=== PATIENT | female | born 1995 | race Caucasian/White ===

== ENCOUNTER 2023-10-15 16:00 | Outpatient (CLI) | payer OTHER, SELFPAY | END 2023-10-15 16:01 | disposition home or self-care (01) | PROVIDERS: PCP Family Medicine; Visit Provider Family Medicine | DX: E28.2 Polycystic ovarian syndrome (principal); E66.9 Obesity, unspecified; Z68.37 Body mass index [BMI] 37.0-37.9, adult; K59.00 Constipation, unspecified | CPT/HCPCS: 80053; 80061; 84443 ==

== ENCOUNTER 2023-11-26 15:12 | Outpatient (CLI) | payer OTHER, SELFPAY ==
--- NOTE | 2023-11-26 15:30 | MR_ITS ---
Patient: ANGE DAVID Facility:?[facility] Patient ID:?[id number] Site Patient ID:?[id number]. Site :?[id number] Study:?MRI-Spine Lumbar W/O-11/26/2023 4:17:10 PM Ordering Physician:?RAMILA BRANDON Final Report: Indication: Low back pain Technique: Multiplanar, multisequence, MRI of the lumbar spine, obtained without contrast. Comparison: Lumbar spine x-ray 09/17/2023 Findings: For numbering purposes, there are 5 [id number] lumbar vertebrae, followed by a transitional, right rubina lumbarized S1 segment, and a rudimentary STIR hyperintense S1-S2 intervertebral disc. The normal lumbar lordosis is preserved, with slight levoconvex curvature. No significant spondylolisthesis. Vertebral body heights are maintained. No acute osseous abnormality. Unremarkable bone marrow signal. Conus medullaris terminates at L2. No suspicious findings identified in the paraspinal soft tissues. T12-L1 through L4-L5: No significant neural foramen or spinal canal stenosis. L5-S1: Broad-based central disc protrusion. No obvious contact on the descending S1 nerve roots. No neural foraminal or spinal canal stenosis. S1-S2: Partially lumbarized S1 segment. Rudimentary disc. No neural foraminal or spinal canal stenosis. Impression: 1. For numbering purposes, there is a transitional, partially lumbarized S1 segment, followed by a rudimentary STIR hyperintense S1-S2 intervertebral disc. 2. At L5-S1, broad-based central disc protrusion, without contact on the descending S1 nerve roots. 3. Slight lumbar levoconvex curvature. No acute osseous abnormality. No neural foraminal or spinal canal stenosis. Dictated by Cristiane Ingram MD @ 11/26/2023 4:43:47 PM Signed by:?Cristiane Ingram MD @11/26/2023 4:43:47 PM (Electronic Signature)
== END 2023-11-26 15:13 | disposition home or self-care (01) ==
LOC: MRI 15:12
PROVIDERS: PCP Family Medicine; Visit Provider Family Medicine
DX: M54.50 Low back pain, unspecified (principal); M51.27 Other intervertebral disc displacement, lumbosacral region; M79.604 Pain in right leg; M79.605 Pain in left leg
CPT/HCPCS: 72148

== ENCOUNTER 2023-12-15 11:04 | Emergency (ER) | payer OTHER, SELFPAY ==
[2023-12-15 11:12] VITALS: BP 140/120; PULSE 94; RESP 24; TEMP 36.5; O2SAT 98; BMI 38.3
--- NOTE | 2023-12-15 11:15 | ED.GENADULT ---
HPI - General Adult General Chief complaint: Back Injury/Pain Stated complaint: Back pain Time Seen by Provider: 12/15/23 11:08 History of Present Illness HPI narrative: Patient is a 28 year white female who has been working with Dr. Herrmann and bowen regarding low back pain. She had an MRI that showed a broad-based L5-S1 disc herniation but no nerve root impingement. She comes in as she was having intermittent back pain, she is scheduled for an injection, she was getting off the floor and her pain got worse it goes down the right leg. She has not had any bowel or bladder symptoms she has been on Vicodin that was not helping much. She has had no fever chills. She has had no perineal numbness. She is quite uncomfortable with her back and she is crying. Related Data Home Medications Medication Instructions Recorded Confirmed drospirenone 3 mg-ethinyl 1 tab PO DAILY 09/17/23 12/15/23 estradiol 0.02 mg tablet Previous Rx's Medication Instructions Recorded hydrocodone 5 mg-acetaminophen 325 1 tab PO Q6H PRN pain #14 tabs 12/09/23 mg tablet hydrocodone 5 mg-acetaminophen 325 2 tab PO Q8H PRN pain #20 tabs 12/15/23 mg tablet Allergies Allergy/AdvReac Type Severity Reaction Status Date / Time No Known Drug Allergies Allergy Verified 12/15/23 11:12 Review of Systems Status of ROS: Reports: 6 or more systems reviewed and unremarkable except as noted in History and below [facility] Medical History History of asthma ?Z87.09 - Personal history of other diseases of the respiratory system (ICD-10) Obesity (BMI 30-39.9) ?E66.9 - Obesity, unspecified (ICD-10) PCOS (polycystic ovarian syndrome) ?E28.2 - Polycystic ovarian syndrome (ICD-10) Irregular bowel habits ?R19.8 - Other specified symptoms and signs involving the digestive system and abdomen (ICD-10) Surgical History History of elbow surgery (07/2021) ?Z98.890 - Other specified postprocedural states (ICD-10) Family History Father History of coronary artery stent placement, Onset Age: 48 Paternal Grandfather Myocardial infarction, Onset Age: 65 Maternal Grandmother Stroke, Onset Age: 60 Breast cancer, Onset Age: 53 Diabetes Mother Melanoma Alcohol dependence Anxiety with depression Social History Narrative: Lives with significant other, 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[employer], 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, no kids Lifetime nonsmoker No alcohol use Recently started exercising 4 days a week 45 minutes full body workouts What is your current living situation?: I presently have a place to live Problems where you live: no known problems In the past 12 months, utilities in danger of being shut off: no In past 12 months, lack of transportation kept you from medical appts, meetings, work, or getting things needed for daily living: no In the past 12 mos, have been you worried that your food would run out before you had money to buy more?: never true In the past 12 mos, the food you bought just didn't last and you didn't have money to buy more?: never true Smoking Status: Never smoker How often do you have a drink containing alcohol: never AUDIT-C Alcohol total score: 0 Non-prescribed substance use: denies use How often does anyone, including family, friends and others, physically hurt you: never How often does anyone, including family, friends and others, insult or talk down to you: never How often does anyone, including family, friends and others, threaten you with harm: never How often does anyone, including family, friends and others, scream or curse at you: never Little interest or pleasure in doing things: not at all Feeling down, depressed, or hopeless: not at all Exam Narrative: Exam Narrative: Objective: Patient is tearful in moderate distress and discomfort She describes pain across her belt line in her lumbar some spine. She is sitting upright. She has been able ambulate. She has denies bowel or bladder symptoms as mention, reports she has pain in her right leg down to her lateral foot. She has and positive straight leg raise on the right She has normal strength sensation lower extremities on the bilaterally. She has palpable low back pain paravertebral muscle spasm. Const: Vital Signs, click to edit/add: Vital Signs - 24 hr 12/15/23 11:12 Temperature 97.7 F Pulse Rate [Pulse Oximeter] 94 Respiratory Rate 24 Blood Pressure [Ri ght Upper Arm] 140/120 H Pulse Oximetry 98 Oxygen Delivery Me thod Room Air Course Vital Signs Vital signs: Initial Vital Signs Temperature 97.7 F 12/15/23 11:12 Temperature Source Temporal Artery Scan 12/15/23 11:12 Pulse Rate 94 12/15/23 11:12 Respiratory Rate 24 12/15/23 11:12 Blood Pressure 140/120 H 12/15/23 11:12 Blood Pressure Mean 126 H 12/15/23 11:12 Blood Pressure Position Sitting 12/15/23 11:12 Pulse Oximetry 98 12/15/23 11:12 Oxygen Delivery Method Room Air 12/15/23 11:12 Vital Signs Temperature 97.7 F 12/15/23 11:12 Pulse Rate 94 12/15/23 11:12 Respiratory Rate 24 12/15/23 11:12 Blood Pressure 140/120 H 12/15/23 11:12 Pulse Oximetry 98 12/15/23 11:12 Oxygen Delivery Method Room Air 12/15/23 11:12 Temperature 97.7 F 12/15/23 11:12 Pulse Rate 94 12/15/23 11:12 Respiratory Rate 24 12/15/23 11:12 Blood Pressure 140/120 H 12/15/23 11:12 Pulse Oximetry 98 12/15/23 11:12 Oxygen Delivery Method Room Air 12/15/23 11:12 Medications Administered Medications: Discontinued Medications Generic Name Dose Route Start Last Admin Trade Name Norbertoq PRN Reason Stop Dose Admin Morphine Sulfate 10 mg 12/15/23 11:13 12/15/23 11:23 Morphine 10 Mg/Ml Inj IM 12/15/23 11:14 10 mg ONCE ONE Administration Medical Decision Making MDM Narrative Medical decision making narrative: 28-year-old female with low back pain. Her central disc herniation really does not look like it impinges nerve roots or central cord, but she is scheduled for an injection. She has been on prednisone, been on Vicodin. She had an exacerbation of what sounds like muscle spasm in her back. Will give her an IM injection of morphine 10 mg 60 mg IM Toradol. Will have her ice her back rest light activity can resume the Vicodin later today. And follow-up as planned for her injection. Return if problems or concerns. Addendum 12:01 p.m.: The patient sees be getting good relief from her injections. Jaw lower to go home ice, light activity position of comfort. Recommend resume the [place] this afternoon as needed. Follow up as scheduled. Return to ED as needed. Discharge Plan Discharge Clinical Impression: Low back pain Patient Disposition: Home w/ Parent or Adult Condition: Stable Additional Instructions: Light activity, ice to the back 10 minutes 5 times a day if he can, continue Vicodin as needed he can start that this afternoon. Light activity as mention, follow-up with your follow-up appointment is scheduled. Activity Level: Light activity Discharge Diet: Regular Prescriptions: New hydrocodone-acetaminophen 5-325 mg tablet 2 tab PO Q8H PRN (Reason: pain) Qty: 20 0RF No Action hydrocodone-acetaminophen 5-325 mg tablet 1 tab PO Q6H PRN (Reason: pain) Qty: 14 0RF drospirenone-ethinyl estradiol 3-0.02 mg tablet 1 tab PO DAILY Follow Up/Referrals: Dora Aguilar MD [Primary Care Provider] - Stand Alone Forms: [employer] Info Instructions
[2023-12-15] MEDS: MORPHINE 10 MG/ML inj IM (11:23)
--- OUTSIDE RECORDS SUMMARY | 2023-12-15 11:46 | XMS_ITS | Clinical Summary ---
Author [facility] Unknown [facility] Address [address] [place] [address] Care Team Providers Care Real Estate Recruiter Name Role Phone Peña Nunn MD Primary Care Provider [phone] Source Comments You are receiving this document as you are listed as the primary care provider,follow-up provider, or the patient has been referred to you for consultation.This is in compliance with the Medicare and[facility] Hospital[facility] EHR Incentive Program,which states Providers who transition their patient to another setting of careor provider of care or refers their patient to another provider of care shouldprovide summary care record for each transition of care or referral. [facility] Allergies Active Allergy Reactions Criticality Noted Date Comments Shellfish-Derived Products Itching,Other, see comments 12/20/2016 Medications Medication Sig Dispensed Refills Start Date End Date Status ibuprofen (MOTRIN) 800 MG tablet Take 1 Tablet by mouth every 8 hours as needed for Pain. 30 Tablet 07/07/2021 Active ketorolac (TORADOL) 10 MG tabletIndications:Bi lateral low back pain with bilateral sciatica, unspecified chronicity (HRC) Take 1 Tablet (10 mg) by mouth every 6 hours as needed for Pain. 12 Tablet 03/16/2022 Active Psyllium 0.52 g capsule Take 1 Capsule (0.52 g) by mouth two times a day. Take 1 capsule in the morning and one capsule in the afternoon. 180 Capsule 1 02/14/2023 Active dicyclomine (BENTYL) 10 MG capsule Take 1 Capsule (10 mg) by mouth three times a day as needed. 90 Capsule 2 02/21/2023 Active drospirenone-ethinyl estradiol (MICHAELA) 3-0.02 MG tabletIndications:Us es contraception Take 1 Tablet by mouth daily. 84 Tablet 3 08/16/2023 08/15/2024 Active Active Problems Problem Noted Date Diagnosed Date Chronic bilateral low back pain with bilateral s ciatica 04/12/2022 Closed fracture of left elbow 07/05/2021 Atypical squamous cells of u ndetermined significance on cytologic smear of cervix (ASC-US) 01/04/2021 Overview: CCSM Review: History: 12/2020 ASCUS (age 25) 05/2022 NILM 08/2023 NILM Plan, per ASCCP guidelines: PAP IN 3 YEARS 2026 Current moderate episode of major depressive disorder without prior episode 07/27/2020 Anxiety 07/27/2020 Resolved Problems Problem Noted Date Diagnosed Date Resolved Date Syncope 10/10/2020 04/12/2022 Immunizations Name Administration Dates Next Due 4vHPV (Gardasil) 03/24/2010,11/21/2009, 0 DTaP 08/18/2002, 9,02/23/1998,1997,1997 HepA Adult (19+ yrs) 01/20/2020,07/09/2018 HepB Ped/Adol (0-18 yrs) 02/23/1998,1997,0 1997 Hib (HbOC) 08/26/1998, 8,1997,1997 IPV (Polio) 08/18/2002 Influenza (Flucelvax), Prese rv Free QIV 03/30/2020,05/15/2018 Influenza IIV4 (Quadrivalent ) 0.5mL (63810) 04/20/2019,04/24/2017 Influenza, Unspecified Formulation 04/24/2014 MCV4 Menveo 2m.+ (two vial) 02/24/2014 MMR 01/20/2013, 3,08/18/2002,1998 Moderna Monovalent 12+ 10/07/2020,09/08/2020 OPV, Unspecified Formulation 02/23/1998,12/21/18 98,1997 Tdap 09/07/2019,09/12/2009 Varicella 03/15/2008,08/26/1998 Family History Medical History Relation Name Comments Depression Father Scot Cancer Maternal Grandmother Jennifer Cancer, Ovary Maternal Great-Grandmother Heart Disease Paternal Grandfather Janes High Cholesterol Paternal Grandfather Janes Relation Name Status Comments Father Scot Alive Mother Alive Maternal Grandfather Maternal Grandmother Jennifer Maternal Great-Grandmother Paternal Grandfather Janes Alive Paternal Grandmother Sister Alive Social History Tobacco Use Types Packs/Day Years Used Date Smoking Tobacco: Never Passive Smoke Exposure: Never Smokeless Tobacco: Never Tobacco Cessation:Counseling Given: Not Answered Alcohol Use Standard Drinks/Week Comments Not Currently 5 (1 standard drink = 0.6 oz pur e alcohol) 3/week PHQ-2 Answer Date Recorded PHQ-2 Score 0 12/23/2020 Sex and Gender Information Value Date Recorded Sex Assigned at Not on file Gender Identity Not on file Sexual Orientation Not on file Last Filed Vital Signs Vital Sign Reading Time Taken Comments Blood Pressure 130/78 08/16/2023 3:10 PM SENIOR MARKETING ASSOCIATE Pulse 90 08/16/2023 3:10 PM SENIOR MARKETING ASSOCIATE Temperature 37.5 ??C (99.5 ??F) 03/16/2022 8:14 AM CD T Respiratory Rate 20 03/16/2022 8:14 AM CDT Oxygen Saturation 99% 12/18/2022 8:31 AM CDT Inhaled Oxygen Concentration - - Weight 108.9 kg (240 lb) 08/16/2023 3:10 PM SENIOR MARKETING ASSOCIATE Height 167.6 cm (5' 6) 08/16/2023 3:10 PM SENIOR MARKETING ASSOCIATE Body Mass Index 38.74 08/16/2023 3:10 PM SENIOR MARKETING ASSOCIATE Plan of Treatment Health Maintenance Due Date Last Done Comments Hep C Screening (Preventive Services) 1997 IPV (Polio) (2 of 3 - 4-dose series) 09/15/2002 08/18/2002, 02/23/1998, 1997, Additional history exists HIV Screening (Preventive Services) 2013 COVID-19 Vaccine ( season) 2023 10/07/2020, 09/08/2020 Influenza (Season Ended) 2024 020, 04/20/2019, 05/15/2018, Additional history exists Adult Preventive Visit 08/16/2025 4, 05/30/2022, 12/23/2020, Additional history exists Cervical Cancer Screening 08/16/20262023, 05/30/2022, 12/23/2020 DTaP/Tdap/Td (8 - Tdap) 09/07/2029 09/07/19, 09/12/2009, 08/18/2002, Additional history exists Zoster/Shingles (1 of 2) 2047 HepB Completed 02/23/1998, 10/03, 1997 Hib Completed 08/26/1998, 02/03, 1997, Additional history exists Varicella Completed 03/15/2008, 08/26/1998 HPV Vaccine Completed 03/24/2010, 11/03, 09/12/2009 MCV4 Completed 02/24/2014 HepA Completed 01/20/2020, 07/09/2018 Pneumococcal Aged Out No longer eligi ble based on patient's age to complete this topic Medical Devices Implanted Type Area Biodiesel Production Technician Device Identifier Shelf Expiration Date Model / Serial / Lot Biotrak Mini 24mm Screw Implanted:Qty: 1 on 07/05/2021 by Clarence William MD at [facility] DEVICE Left: [employer] 04/21/2022 [id number] / / [id number] Description:Biotrak mini 24m m screw Biotrak Mini 22mm Screw Implanted:Qty: 1 on 07/05/2021 by Clarence William MD at [facility] DEVICE Left: [employer] 03/09/2023 [id number] / [id number] / [id number] Description:Biotrak mini 22m m screw Procedures Procedure Name Priority Date/Time Associated Diagnosis Comments PAP TEST Routine 08/16/2023 3:57 PM SENIOR MARKETING ASSOCIATE Screening for malignant neoplasm of cervix Encounter for gynecological examination without abnormal finding from Last 3 Months or Most Recently Relevant to Health Maintenance Results * PAP Test (08/16/2023 3:57 PM SENIOR MARKETING ASSOCIATE) Case Report Pap ? Case: [id number] ? Authorizing Provider: ??Martine Fregoso MD ? Collected: ? 08/16/2023 1557 ? Ordering Location: ? [place] [address] ?Received: ?08/16/2023 1611 ? Obstetrics/Gyneco logy ? First Screen: ?Laury Carty ? Specimen: ?Pap Test, Diagnostic, Cervix/Endocervix ? 08/28/2023 3:15 PM SENIOR MARKETING ASSOCIATE [facility] Pap Specimen Adequacy Satisfactory for evaluation, endocervical/montalvo sformation zone component present. 08/28/2023 3:15 PM SENIOR MARKETING ASSOCIATE [facility] Pap Interpretation (NILM) Negative for intraepithelial lesion or malignancy. 08/28/2023 3:15 PM SENIOR MARKETING ASSOCIATE [facility] Pap Disclaimer The Pap test is a screening test to aid in the detection of cervical and vaginal cancers and their precursor lesions. It is not a diagnostic procedure and should not be used as the sole means of detecting malignancy. Both false-positive and false-negative results may occur. 08/28/2023 3:15 PM SENIOR MARKETING ASSOCIATE [facility] Gross Description The specimen is received in SurePath fixative and properly labeled. 1 Pap-stained SurePath slide is prepared. 08/28/2023 3:15 PM SENIOR MARKETING ASSOCIATE [facility] Embedded Images 3:15 PM SENIOR MARKETING ASSOCIATE [facility] Other Specimen Type ENTIRE ENDOCERVIX / Unknown 08/16/2023 3:57 PM SENIOR MARKETING ASSOCIATE 08/16/2023 4:11 PM SENIOR MARKETING ASSOCIATE Comment:LMP: Patient's last menstrual period was 03/11/2023 (approximate). Martine Fregoso MD LAB PATHOLOGY [facility] [address] [place], [place] [address] from Last 3 Months or Most Recently Relevant to Health Maintenance Advance Directives * Full Code (Latest Code Status on File) Date Activated Date Inactivated Comments 07/04/2021 9:24 PM 07/05/2021 4:22 PM Care Teams Real Estate Recruiter Relationship Specialty Start Date End Date Peña [place] [address] [place] [address] PCP - General Family Practice 04/12/22
== END 2023-12-15 12:18 | disposition home or self-care (01) ==
LOC: ED 11:45
PROVIDERS: Emergency Provider Family Medicine; PCP Family Medicine
DX: M54.50 Low back pain, unspecified (principal)
CPT/HCPCS: 96372; 99284; J2270

== ENCOUNTER 2023-12-17 09:09 | Outpatient (CLI) | payer OTHER, SELFPAY ==
--- OUTSIDE RECORDS SUMMARY | 2023-12-17 09:12 | XMS_ITS | Clinical Summary ---
Author Name Unknown Organization [facility] Address [address] [place] [address] Care Team Providers Care Insulation Foreman Name Role Phone Peña Nunn MD Primary Care Provider [phone] Source Comments You are receiving this document as you are listed as the primary care provider,follow-up provider, or the patient has been referred to you for consultation.This is in compliance with the Medicare and[facility] Cent[facility] EHR Incentive Program,which states Providers who transition their patient to another setting of careor provider of care or refers their patient to another provider of care shouldprovide summary care record for each transition of care or referral. [facility] Allergies Active Allergy Reactions Criticality Noted Date [...] QIV 03/30/2020,05/15/2018 Influenza IIV4 (Quadrivalent ) 0.5mL (81592) 04/20/2019,04/24/2017 Influenza, Unspecified Formulation 04/24/2014 MCV4 Menveo [...] Comments Blood Pressure 130/78 08/16/2023 3:10 PM BLOW MOLDER Pulse 90 08/16/2023 3:10 PM BLOW MOLDER Temperature 37.5 ??C (99.5 ??F) 03/16/2022 8:14 AM CD T Respiratory Rate 20 03/16/2022 8:14 AM CDT Oxygen Saturation 99% 12/18/2022 8:31 AM CDT Inhaled Oxygen Concentration - - Weight 108.9 kg (240 lb) 08/16/2023 3:10 PM BLOW MOLDER Height 167.6 cm (5' 6) 08/16/2023 3:10 PM BLOW MOLDER Body Mass Index 38.74 08/16/2023 3:10 PM BLOW MOLDER Plan of Treatment Health Maintenance Due Date [...] this topic Medical Devices Implanted Type Area Coffee Host Device Identifier Shelf Expiration Date Model / Serial / Lot Biotrak Mini 24mm Screw Implanted:Qty: 1 on 07/05/2021 by Clarence William MD at [facility] DEVICE Left: [employer] 04/21/2022 [id number] / / [id number] Description:Biotrak mini 24m m screw Biotrak Mini 22mm Screw Implanted:Qty: 1 on 07/05/2021 by Clarence William MD at [facility] DEVICE Left: [employer] 03/09/2023 [id number] / [id number] / [id number] Description:Biotrak mini 22m m screw Procedures Procedure Name Priority Date/Time Associated Diagnosis Comments PAP TEST Routine 08/16/2023 3:57 PM BLOW MOLDER Screening for malignant neoplasm of cervix Encounter for gynecological examination without abnormal finding from Last 3 Months or Most Recently Relevant to Health Maintenance Results * PAP Test (08/16/2023 3:57 PM BLOW MOLDER) Case Report Pap ? Case: [id number] ? Authorizing Provider: ??Martine Fregoso MD ? Collected: ? 08/16/2023 1557 ? Ordering Location: ? [place] [address] ?Received: ?08/16/2023 1611 ? Obstetrics/Gyneco logy ? First Screen: ?Laury Carty ? Specimen: ?Pap Test, Diagnostic, Cervix/Endocervix ? 08/28/2023 3:15 PM BLOW MOLDER [facility] Pap Specimen Adequacy Satisfactory for evaluation, endocervical/montalvo sformation zone component present. 08/28/2023 3:15 PM BLOW MOLDER [facility] Pap Interpretation (NILM) Negative for intraepithelial lesion or malignancy. 08/28/2023 3:15 PM BLOW MOLDER [facility] Pap Disclaimer The Pap test is a screening test to aid in the detection of cervical and vaginal cancers and their precursor lesions. It is not a diagnostic procedure and should not be used as the sole means of detecting malignancy. Both false-positive and false-negative results may occur. 08/28/2023 3:15 PM BLOW MOLDER [facility] Gross Description The specimen is received in SurePath fixative and properly labeled. 1 Pap-stained SurePath slide is prepared. 08/28/2023 3:15 PM BLOW MOLDER [facility] Embedded Images 3:15 PM BLOW MOLDER [facility] Other Specimen Type ENTIRE ENDOCERVIX / Unknown 08/16/2023 3:57 PM BLOW MOLDER 08/16/2023 4:11 PM BLOW MOLDER Comment:LMP: Patient's last menstrual period was 03/11/2023 (approximate). Martine Fregoso MD LAB PATHOLOGY [facility] [address] [place], [place] [address] from Last 3 Months or Most Recently Relevant to Health Maintenance Advance Directives * Full Code (Latest Code Status on File) Date Activated Date Inactivated Comments 07/04/2021 9:24 PM 07/05/2021 4:22 PM Care Teams Insulation Foreman Relationship Specialty Start Date End Date Peña [place] [address] [place] [address] PCP - General Family Practice 04/12/22
== END 2023-12-17 09:10 | disposition home or self-care (01) ==
LOC: INJ CL 09:10
PROVIDERS: PCP Family Medicine; Visit Provider Family Medicine
DX: M54.16 Radiculopathy, lumbar region (principal); M51.26 Other intervertebral disc displacement, lumbar region
CPT/HCPCS: 64483; J1100; Q9966

== ENCOUNTER 2024-03-13 10:05 | Outpatient (CLI) | payer OTHER, SELFPAY ==
--- OUTSIDE RECORDS SUMMARY | 2024-03-13 10:07 | XMS_ITS | Clinical Summary ---
Author Organization [facility] Address [address] [place] [address] Care Team Providers Care Legal Editor Name Role Phone Peña Nunn MD Primary Care Provider [phone] Source Comments You are receiving this document as you are listed as the primary care provider,follow-up provider, or the patient has been referred to you for consultation.This is in compliance with the Medicare and[facility] EHR Incentive Program,which states Providers who transition their patient to another setting of careor provider of care or refers their patient to another provider of care shouldprovide summary care record for each transition of care or referral. [facility] [facility] Allergies Active Allergy Reactions Criticality Noted Date [...] QIV 03/30/2020,05/15/2018 Influenza IIV4 (Quadrivalent ) 0.5mL (87353) 04/20/2019,04/24/2017 Influenza, Unspecified Formulation 04/24/2014 MCV4 Menveo 2m.+ (two vial) 02/24/2014 MMR 01/20/2013, 3,08/18/2002,1998 Moderna Monovalent 12+ 10/07/2020,09/08/2020 OPV, Unspecified Formulation 02/23/1998,12/21/18 98,1997 Tdap 09/07/2019,09/12/2009 Varicella 03/15/2008,08/26/1998 Family History Medical History Relation Name Comments Depression Father Scot Cancer Maternal Grandmother Jennifer Cancer, [place] Maternal Great-Grandmother Heart Disease Paternal Grandfather Janes High Cholesterol Paternal Grandfather Jaens Relation Name Status Comments Father Scot Alive [...] Comments Blood Pressure 130/78 08/16/2023 3:10 PM PURCHASING DEPARTMENT CLERK Pulse 90 08/16/2023 3:10 PM PURCHASING DEPARTMENT CLERK Temperature 37.5 ??C (99.5 ??F) 03/16/2022 8:14 AM CD T Respiratory Rate 20 03/16/2022 8:14 AM CDT Oxygen Saturation 99% 12/18/2022 8:31 AM CDT Inhaled Oxygen Concentration - - Weight 108.9 kg (240 lb) 08/16/2023 3:10 PM PURCHASING DEPARTMENT CLERK Height 167.6 cm (5' 6) 08/16/2023 3:10 PM PURCHASING DEPARTMENT CLERK Body Mass Index 38.74 08/16/2023 3:10 PM PURCHASING DEPARTMENT CLERK Plan of Treatment Health Maintenance Due Date Last Done Comments Hep C Screening (Preventive Services) 1997 IPV (Polio) (2 of 3 - 4-dose series) 09/15/2002 08/18/2002, 02/23/1998, 1997, Additional history exists HIV Screening (Preventive Services) 2013 COVID-19 Vaccine ( season) 2023 10/07/2020, 09/08/2020 Influenza (#1) 2024 03/30/2020, 04/05, 05/15/2018, Additional history exists Adult Preventive Visit [...] this topic Medical Devices Implanted Type Area Landfill Grader Device Identifier Shelf Expiration Date Model / Serial / Lot Biotrak Mini 24mm Screw Implanted:Qty: 1 on 07/05/2021 by Clarence William MD at [facility] DEVICE Left: [employer] 04/21/2022 [id number] / / [id number] Description:Biotrak mini 24m m screw Biotrak Mini 22mm Screw Implanted:Qty: 1 on 07/05/2021 by Clarence William MD at [facility] DEVICE Left: [employer] 03/09/2023 [id number] / [id number] / [id number] Description:Biotrak mini 22m m screw Procedures Procedure Name Priority Date/Time Associated Diagnosis Comments PAP TEST Routine 08/16/2023 3:57 PM PURCHASING DEPARTMENT CLERK Screening for malignant neoplasm of cervix Encounter for gynecological examination without abnormal finding from Last 3 Months or Most Recently Relevant to Health Maintenance Results * PAP Test (08/16/2023 3:57 PM PURCHASING DEPARTMENT CLERK) Case Report Pap ? Case: [id number] ? Authorizing Provider: ??Martine Fregoso MD ? Collected: ? 08/16/2023 1557 ? Ordering Location: ? [place] [address] ?Received: ?08/16/2023 1611 ? Obstetrics/Gyneco logy ? First Screen: ?Laury Carty ? Specimen: ?Pap Test, Diagnostic, Cervix/Endocervix ? 08/28/2023 3:15 PM PURCHASING DEPARTMENT CLERK [facility] Pap Specimen Adequacy Satisfactory for evaluation, endocervical/montalvo sformation zone component present. 08/28/2023 3:15 PM PURCHASING DEPARTMENT CLERK [facility] Pap Interpretation (NILM) Negative for intraepithelial lesion or malignancy. 08/28/2023 3:15 PM PURCHASING DEPARTMENT CLERK [facility] Pap Disclaimer The Pap test is a screening test to aid in the detection of cervical and vaginal cancers and their precursor lesions. It is not a diagnostic procedure and should not be used as the sole means of detecting malignancy. Both false-positive and false-negative results may occur. 08/28/2023 3:15 PM PURCHASING DEPARTMENT CLERK [facility] Gross Description The specimen is received in SurePath fixative and properly labeled. 1 Pap-stained SurePath slide is prepared. 08/28/2023 3:15 PM PURCHASING DEPARTMENT CLERK [facility] Embedded Images 3:15 PM PURCHASING DEPARTMENT CLERK [facility] Other Specimen Type ENTIRE ENDOCERVIX / Unknown 08/16/2023 3:57 PM PURCHASING DEPARTMENT CLERK 08/16/2023 4:11 PM PURCHASING DEPARTMENT CLERK Comment:LMP: Patient's last menstrual period was 03/11/2023 (approximate). Martine Fregoso MD LAB PATHOLOGY [facility] [address] [place] [address], [facility] from Last 3 Months or Most Recently Relevant to Health Maintenance Advance Directives * Full Code (Latest Code Status on File) Date Activated Date Inactivated Comments 07/04/2021 9:24 PM 07/05/2021 4:22 PM Care Teams Legal Editor Relationship Specialty Start Date End Date Peña [place] [address] [place] [address] PCP - General Family Practice 04/12/22
--- OUTSIDE RECORDS SUMMARY | 2024-03-13 10:07 | XMS_ITS | Clinical Summary ---
Author Organization [facility] [place], [place] [address] Care Team Providers Care Billet Straightener Name Role Phone Dora Aguilar MD Primary Care Provider + Encounters Date Type Department Care Team Description 03/10/2024 Telephone [facility] [address] [place] [address] Malik Herrmann MD Appointment Request 03/09/2024 Transcribe Orders [facility] [address] [place] [address] Malik Herrmann MD 03/09/2024 Transcribe Orders [facility] [address] [place] [address] Malik Herrmann MD 03/09/2024 Telephone [facility] [address] [place] [address] Malik Herrmann MD Appointment Request (SHOT ) 12/17/2023 9:40 AM CDT Office Visit [facility] [address] [place] [address] Malik Herrmann MD Procedure (Right S1 TFESI) 12/17/2023 Orders Only [facility] Scanner 1 scan: (1-Ord) [facility], RT S1 TRANSFORAMINAL EPIDURAL STEROID INJ, 12/17/2023 from Last 3 Months Social History Tobacco Use Types Packs/Day Years Used Date Smoking Tobacco: Never Assessed Social Connections Answer Date Recorded Frequency of Communication with Friends and Fami ly Not on file 12/17/2023 Sex and Gender Information Value Date Recorded Sex Assigned at Not on file Gender Identity Not on file Sexual Orientation Not on file Plan of Treatment Upcoming Encounters Date Type Department Care Team (Late st Contact Info) Description 03/13/2024 10:40 AM CDT Office Visit [facility] [address] [place] [address] Malik Herrmann MD [address] [place] [address] Arrived Health Maintenance Due Date Last Done Comments Tdap 2008 Depression screening for age 12+ 2009 HIV for age 15-65 2012 HPV series for age 9-26 (1 - 3-dose series) 2012 BMI (ht and wt on same day) for age 18+ 2015 Hepatitis C screening for ag e 18-79 2015 Tetanus booster 2017 Pap test for age 21-65 2018 COVID-19 vaccine series (2022- season) 2023 10/07/2020, 09/08/2020 Influenza for age 9-49 04/05/2024 Pneumococcal series for age 6-64 Aged Out No longer eligible b ased on patient's age to complete this topic Procedures Procedure Name Priority Date/Time Associated Diagnosis Comments AMB EPIDURAL STEROID INJECTION Routine 03/13/2024 8:08 AM CDT Lumbar radiculopathy AMB EPIDURAL STEROID INJECTION Routine 12/17/2023 8:00 AM CDT Lumbar radiculopathy SCAN-OPERATIVE/PRO CEDURE REPORT 12/17/2023 12:00 AM CDT from Last 3 Months Results * SCAN-OPERATIVE/PROCEDURE REPORT (12/17/2023 12:00 AM CDT) Scanner OTHER from Last 3 Months Care Teams Billet Straightener Relationship Specialty Start Date End Date Dora Aguilar MD [address] [facility] [place] [place] [address] PCP - General Family Practice 11/29/23
== END 2024-03-13 10:06 | disposition home or self-care (01) ==
LOC: INJ CL 10:06
PROVIDERS: PCP Family Medicine; Visit Provider Family Medicine
DX: M54.16 Radiculopathy, lumbar region (principal)
CPT/HCPCS: 64483; J1100; Q9966

== ENCOUNTER 2024-03-31 08:00 | Outpatient (RCR) | payer OTHER, SELFPAY ==
--- NOTE | 2023-11-12 09:09 | PT.OPDN ---
PT [facility] Outpatient Daily Note PT [facility] Outpatient Daily Note Start: 09/19/23 07:55 Freq: Status: Active Protocol: Document 11/12/23 07:55 KELSEYT (Rec: 11/12/23 08:51 CJT [id number]) E-signed By Juan Etienne, PT PT OP Daily Progress Note Visit Information Note Type Daily Note Visit Number 14 Insurance Authorized Visits 100 Physician Authorized Visits eval & treat Insurance Information Recert Due Date 12/18/23 Insurance Name [facility] Medical Diagnosis Low back pain Treating Diagnosis Acute low back pain Referring MD Malik Vásquez, PACasaC Subjective Subjective Pt in high amount of pain this AM. Rates her pain as 10. Pt was feeling great after last session and symptoms returned the next day. has been completing her exercises with minimal relief noted. Prone on elbows seems to be helpful still. Pt reports she spent about 6 hours in that position on Saturday and this allowed for the greatest relief in her pain since last treatment session. Pt reports she is very frustrated with her pain. Pain Comments Pre-treatment: 04/14 Post-treatment: 09/14 Preferred Name [place] Home Exercise Home Exercise Comments [id number] Objective Other/Pertinent Objective Lumbar spine AROM - limited in all planes due to pain Lumbar special tests Slump: (+) bilaterally SLR: (+) bilaterally (30 degees on R, 45 degrees on L) Patient Instructed in Risks/Benefits Yes Therapeutic Exercise Therapeutic Exercise Minutes (minutes) 20 Therapeutic Exercise: To Restore Supine trunk rotations 3 x 20 Functional Status ea (partial to full range) PPT x 20 SKTC stretch x 1' ea DKTC stretch x 1' Sciatic nerve glides 2 x 5 ea, 3 hold Therapeutic Activity Therapeutic Activity Minutes (minutes) 10 Therapeutic Activities Comments Prone on elbows on floor x 10 minutes to reduce suspected disc compression in lumbar spine *progression from prone on elbows to prone press-up to prone with chest/arms on small Bahraini ball Floor to stand transfer with log roll technique from prone to supine Manual Therapy Techniques Manual Therapy Minutes (minutes) 8 Manual Therapy Techniques LA dx of R LE x 1', x 2' Gentle STM to B lumbar paraspinals, QL, iliolumbar ligament, sacral border to reduce tissue tension and improve extensibility. Other Interventions Provided Other Modalities Provided Estim - electrodes placed at B lumbar paraspinals and PSIS; pt prone, intensity set to her preference with hot pack placed over low back and sacrum - 12 minutes Treatment Minutes Untimed Code Treatment Minutes 12 Timed Code Treatment Minutes 38 Total Treatment Time 50 Billing Units Manual Therapy Units 1 Therapeutic Activity Units 1 Therapeutic Exercise Units 1 Assessment/Impression Assessment/Impression Angeles's recent flare up has been the worst that she has experienced per her report. Her pain is significantly impacting her ability to work, sleep, and drive. Pts drive to and from work has been the most painful experience for her over the past two weeks. I would recommend at this time that Angeles reaches out to her PCP Dr. Aguilar to inquire about a Medrol dose pack or other oral steroid. She may also be a good candidate for an epidural steroid injection. Pt is scheduled for a Spine care visit with Dr. Mast on . If Dr. Mast is in agreement that an MALISSA would be a good option for Angeles as asked that she inquire that she have this performed by Dr. Herrmann. Pt gives verbal understanding to this. Plan of Care Physical Therapy Goals STG - To be completed in 2-3 weeks: -Pt will report a decrease in pain by factor of at least [address] to and from work without pain exacerbation . MET LTG - To be completed in 8-12 weeks: -Pt will be I with HEP so that they may I manage progression of symptoms. -Pt will demonstrate 5/5 MMT for hip abd and ext B to provide greater support to pelvis/lumbar spine during standing and walking. 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 Daily Plan of Care Continue per POC
--- NOTE | 2024-03-31 13:28 | PT.OPDN ---
PT [place] Out[facility] Daily Note PT [facility] Daily Note Start: 09/19/23 07:55 Freq: Status: Active Protocol: Document 03/31/24 07:59 CJT (Rec: 03/31/24 09:45 CJT [id number]) E-signed By Juan Etienne, PT PT OP Daily Progress Note Visit Information Note Type Daily Note Visit Number 20 Insurance Authorized Visits 100 Physician Authorized Visits eval & treat Insurance Information Recert Due Date 12/18/23 Insurance Name [employer] Medical Diagnosis Low back pain Treating Diagnosis Acute low back pain Referring MD Malik Vásquez PA-C Subjective Preferred Name [place] Subjective Pt returns with complaints of increased pain. Pt notes she had a flare-up of pain prior to last MALISSA. Notes that returning to clinic was helpful with STM and stim. Pt had been managing her pain at 3-4/10 most days. Yesterday her pain was up to a 6/10 and is worried that she is not staying on top of her pain as well as she could be. 2nd MALISSA did not help to alleviate pain. Pt denies radiating pain. Pt points to one specific spot on the R side of her low back that she describes and sore and burning . Stretching did not help this pain yesterday. It feels like someone is placing a hot coal on a spot on my low back. Pain Comments 6/10 Home Exercise Home Exercise Comments [id number] Objective Other/Pertinent Objective LE Strength: grossly 5/5 MMT bilaterally, subtle strength deficits noted in R ankle DF Slump: negative SLR: negative Pelvis: L upslip, R anterior rotation LLD: 86.5cm/86.0cm Patient Instructed in Risks/Benefits Yes Manual Therapy Techniques Manual Therapy Minutes (minutes) 25 Manual Therapy Techniques STM to B iliacus, thoracic and lumbar paraspinals, QL, iliolumbar ligament, glute med /min, and piriformis to reduce tissue tension and improve extensibility. TPR to B piriformis to diminish spasm with relaxation of B mm noted. Other Interventions Provided Other Modalities Provided Estim - electrodes placed at R lumbar paraspinals, PSIS, glute med, piriformis; pt prone, intensity set to her preference - 15 minutes set up and treatment time Other Modalities Untimed Minutes 15 Treatment Minutes Untimed Code Treatment Minutes 15 Timed Code Treatment Minutes 25 Total Treatment Time 40 Billing Units Manual Therapy Units 2 Electrical Stimulation Units 1 Assessment/Impression Assessment/Impression Pt tolerates treatment well this date and notes relief of pain. It appears that pts pain is isolated to her R PSIS. SLR and slump testing was negative this date which is promising, however, subtle strength deficit note din R ankle DF today. Strength otherwise tested 5/5 MMT throughout B LEs. Plan of Care Physical Therapy Goals STG - To be completed in 2-3 weeks: -Pt will report a decrease in pain by factor of at least [address] to and from work without pain exacerbation . MET LTG - To be completed in 8-12 weeks: -Pt will be I with HEP so that they may I manage progression of symptoms. -Pt will demonstrate 5/5 MMT for hip abd and ext B to provide greater support to pelvis/lumbar spine during standing and walking. 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 Daily Plan of Care Continue per POC
== END 2024-07-29 23:59 | disposition home or self-care (01) ==
PROVIDERS: PCP Family Medicine; Visit Provider Physician Assistant
DX: M54.50 Low back pain, unspecified (principal); Z51.89 Encounter for other specified aftercare
CPT/HCPCS: 97012; 97032; 97033; 97110; 97140; 97161; 97530